=== PATIENT | male | born 1975 | race African-American/Black ===

== ENCOUNTER 2020-07-15 14:02 | Emergency (ER) | payer OTHER, MEDICAID ==
[~2020-07-15] VITALS: Ht 177.8 cm; Wt 72.0 kg
[2020-07-15 14:04] VITALS: BP 151/101
== END 2020-07-15 14:35 | disposition home or self-care (01) ==
LOC: ER 14:02
DX: F16.129 Hallucinogen abuse with intoxication, unspecified (principal); F32.9 Major depressive disorder, single episode, unspecified; F12.10 Cannabis abuse, uncomplicated
CPT/HCPCS: 99283